=== PATIENT | male | born 1970 | race African-American/Black ===

== ENCOUNTER 2018-12-10 22:33 | Observation (INO) ==
[2018-12-10 23:52] LABS: BASO# 0.05 X1000 (0.0-0.2); BASO% 0.4 % (0.0-0.8); EOS# 0.14 X1000 (0.0-0.7); EOS% 1.1 % (0.0-10.0); HEMATOCRIT 41.2 % (42.0-52.0); HEMOGLOBIN 13.8 g/dL (14.0-18.0); IMM GRAN# 0.05 X1000 (0.0-0.04); IMM GRAN% 0.4 % (0.0-0.5); LYMPH# 1.91 X1000 (1.2-3.4); LYMPH% 15.3 % (20.5-51.1); MCH 25.8 PG (27-31); MCHC 33.5 g/dL (33-37); MCV 77.2 FL (81-99); MONO# 1.73 X1000 (0.11-0.59); MONO% 13.9 % (1.7-9.3); MPV 9.6 FL (7.4-10.4); NEUT# 8.61 X1000 (1.4-6.5); NEUT% 68.9 % (42.2-75.2); PLT 312 X1000 (130-400); RBC 5.34 XMIL (4.7-6.1); RDW 14.8 % (11.5-14.5); WBC 12.49 X1000 (4.8-10.8)
[2018-12-11 00:17] LABS: AGAP 12; ALBUMIN 3.9 g/dL (3.5-5.0); ALKALINE PHOSPHATASE 99 U/L (32-122); BUN 13 mg/dL (8-22); CALCIUM 9.5 mg/dL (8.8-10.2); CHLORIDE 96 mmol/L (98-107); COSMO 278; ESTIMATED GFR > 60; GLUCOSE 140 mg/dL (70-104); GOT 30 U/L (10-34); GPT 29 U/L (10-44); POTASSIUM 3.2 mmol/L (3.5-5.1); SODIUM 138 mmol/L (136-145); TCO2 30 mmol/L (25-35); TOTAL PROTEIN 8.2 g/dL (6.3-8.3)
[2018-12-11] MEDS ORDERED: VANCOMYCIN 1 GM/NS 1 GM/250 ML IVPB IV ONE (01:14)
[2018-12-11] MEDS ORDERED: ZOSYN 3.375 GM in NS 50 ML IV ONE (01:14)
--- NOTE | 2018-12-11 01:27 | PROVIDER DOCUMENTATION ---
This chart was entered by Trina Rios Scribe, acting as scribe for Cristofer Quintero MD. HPI-Rash/Wound/ReCheck - General Chief Complaint: Sores/Lesions Stated Complaint: SORE/LESION(S) Time Seen by Provider: 12/10/18 23:16 Source: patient Allergies/Adverse Reactions: Allergies Allergy/AdvReac Type Severity Reaction Status Date / Time No Known Allergies Allergy Verified 12/10/18 22:52 - History of Present Illness-Dermatology Nature of Presenting Problem: pt is a 48 yr old male presenting with 5 day complaint of skin sore on low abdomen, pt reports 5 days ago he had a raised red tender area, area has gotten larger and more painful since. pt reports wound opened today with purulent drainage noted. pt denies any fever, admits fatigue. pt denies any other compalints. Location: reports: other (low abdomen) Quality: reports: painful Severity: reports: severe Onset/Duration: reports: 5 days ago Timing: reports: changing over time, getting worse Context/Associated Symptoms: reports: abscess Identifiable cause?: No Exposure: reports: unknown cause Locality of Occurance: Home Similar Symptoms Previously?: No Recently seen or treated by another doctor?: No Review of Systems - Adult - REVIEW OF SYSTEMS - ADULT Constitutional: reports: fatique. denies: fever Eyes: reports: no symptoms reported Ears, Nose, Mouth & Throat: reports: no symptoms reported Cardiovascular: reports: no symptoms reported Respiratory: denies: cough, shortness of breath Gastrointestinal: reports: abdominal pain. denies: diarrhea, nausea, vomiting Genitourinary: reports: no symptoms reported Musculoskeletal: reports: no symptoms reported Integumentary: reports: skin sores/ulcer Neurological: reports: no symptoms reported Psychiatric: reports: no symptoms reported Endocrine: reports: no symptoms reported Hematologic/Lymphatic: reports: no symptoms reported Allergic/Immunologic: reports: no symptoms reported All Other Systems: Reviewed and Negative Past History - Adult - PAST MEDICAL HISTORY-ADULT Review of Records: reports: Old Records Reviewed, Nursing Assessment Review, Medications Reviewed, Social history reviewed & non-contributory. Major Childhood Illnesses: reports: denies history Cardiovascular: reports: denies history Respiratory: reports: denies history Gastrointestinal: reports: denies history Obstetrical/Gynecological: reports: denies history Genitourinary: reports: denies history Musculoskeletal: reports: denies history Neurological: reports: denies history Endocrine/Immune: reports: denies history Other Conditions: reports: denies history - IMMUNIZATION STATUS Childhood Immunizations: See Nurse Assessment Flu Vaccine: See Nurse Assessment - FAMILY HISTORY Family History: reviewed, not pertinent - SOCIAL HISTORY Smoking: denies Substance Use: denies Living Situation: family Physical Exam-General - PHYSICAL EXAM-ADULT Initial Vital Signs Reviewed: Yes - CONSTITUTIONAL General Appearance: alert, no apparent distress, obese - EYES Eyes: PERRL/EOMI - HEAD, EARS, NOSE, MOUTH & THROAT HENMT: normocephalic/atraumatic, moist mucous membranes - NECK Neck: non-tender, full range of motion, supple, normal inspection - RESPIRATORY Respiratory: lungs clear, normal breath sounds - CARDIOVASCULAR Cardiovascular: normal peripheral pulses, regular rate, rhythm - GASTROINTESTINAL (ABDOMEN) Abdominal Exam: normal bowel sounds, other (large abscess to low abdomen) - LYMPHATIC Lymphatic: no adenopathy - MUSCULOSKELETAL Back Exam: normal inspection Extremity: normal range of motion, non-tender, normal gait, normal inspection - SKIN Integumentary: normal color, normal turgor, warm/dry, other (large 10x6cm abscess with fluctuant center with surrounding errythema) - NEUROLOGIC Neurologic: grossly normal - PSYCHIATRIC Psych/Mental Status: normal mood/affect Progress - PLAN OF CARE/RESULTS Progress/Plan/Lab Results: Vital Signs - 8 hr 12/10/18 22:38 Temperature 99.9 F H Pulse Rate 91 H Respiratory Rate 20 Blood Pressure 123/78 O2 Sat by Pulse Oximetry 96 Laboratory Results - last 24 hr 12/10/18 12/10/18 23:44 23:44 WBC 12.49 H RBC 5.34 Hgb 13.8 L Hct 41.2 L MCV 77.2 L MCH 25.8 L MCHC 33.5 RDW Std Deviation 14.8 H Plt Count 312 MPV 9.6 Immature Gran % (Auto) 0.4 Neut % (Auto) 68.9 Lymph % (Auto) 15.3 L Gallia % (Auto) 13.9 H Eos % (Auto) 1.1 Baso % (Auto) 0.4 Immature Gran # (Auto) 0.05 H Neut # (Auto) 8.61 H Lymph # (Auto) 1.91 Gallia # (Auto) 1.73 H Eos # (Auto) 0.14 Baso # (Auto) 0.05 Sodium 138 Potassium 3.2 L Chloride 96 L Carbon Dioxide 30 Anion Gap 12 BUN 13 Creatinine 1.0 Estimated GFR/1.73 m2 > 60 BUN/Creatinine Ratio 13 Glucose 140 H Calculated Osmolality 278 Calcium 9.5 Total Bilirubin 0.30 AST 30 ALT 29 Alkaline Phosphatase 99 Total Protein 8.2 Albumin 3.9 Globulin 4.0 Albumin/Globulin Ratio 1.0 Orders Category Date Time Status CT ABD/PELVIS W/IV CONT ONLY [CT] Stat Exams 12/10/18 23:41 Taken BLOOD CULTURE [BLDCUL] Stat Lab 12/10/18 23:48 Ordered CBC WITH ELECTRONIC DIFF [HEME] Stat Lab 12/10/18 23:44 Completed CMP [COMPREHENSIVE METABOLIC PANEL] [CHEM] Stat Lab 12/10/18 23:44 Completed WOUND CULTURE INC GRAM STAIN [RM] Routine Lab 12/10/18 23:55 Ordered Piperacillin/Tazobactam [Zosyn] 3.375 gm Med 12/11/18 01:14 Active 0.9% Sodium Chloride Inj [Ns] 50 ml IV NOW Vancomycin 1 gm/Ns Med 12/11/18 01:14 Active 1 gm in 250 ml IV NOW Result Diagrams: 12/10/18 23:44 12/10/18 23:44 - CT/MRI 1 CT Study: Abdomen CT Results: superficial fluids collection- 1.7cm X 3.2cm, nonspecific cellulitis - CONSULTS/PCP/HOSPITALIST Notification #1 *Consult/PCP/Hospitalist*: Dr. Chow, hospitalist Time Discussed: 01:15 Reason/Comments: admit to [facility] hospitalist, start Vanc & Zosyn Consult Disposition: Admit #2 Consult: Dr. Avalos, hospitalist at [facility] Time Discussed: 01:25 Consult Disposition: Admit Departure - Departure Date of Disposition Decision: 12/11/18 Time of Disposition Decision: 01:30 DIAGNOSIS: Abdominal wall abscess, Abdominal wall cellulitis Disposition: ADMITTED INPATIENT 09 Certified Medical Emergency: Emergent Condition: Stable Referrals and Follow-Ups: Shonna Schultz MD [Primary Care Provider] - - Critical Care Note This patient required my direct & personal management of CC.: No Attestation - Physician/ KEITH Attestation Patient care was provided by Advanced Practice Provider:: No The physician spent face to face time with patient:: Yes Advanced Practice Provider documentation review:: Supervising physician onsite and consulted in the evaluation and care of this patient. The physician did have a face to face encounter with the patient. This chart was documented by the indicated scribe, (Trina Rios Scribe) and accurately reflects the services I performed and decisions made by me, Cristofer Quintero MD, as attested by the provider's signature.
[2018-12-11] MEDS ORDERED: NS 1,000 ML IV ONE (01:30)
[2018-12-11] MEDS ORDERED: VANCOMYCIN IV PER PHARMACY MISC SCH (01:45)
[2018-12-11] MEDS ORDERED: VANCOMYCIN 1,150 MG in NS 250 ML IV ONE (05:00)
--- NOTE | 2018-12-11 06:22 | GENERAL SURGERY CONSULTATION ---
DATE: 12/11/2018 REQUESTING PHYSICIAN: Emergency Department. REASON FOR CONSULTATION: Abdominal wall abscess. HISTORY OF PRESENT ILLNESS: A 48-year-old gentleman presenting with a 5-day history complain of skin sore in the lower abdominal wall. He thought it initially started his folliculitis, but it has continued to worsen. He noticed spontaneous drainage of purulence yesterday and came to the emergency department. He had a CT scan that showed cellulitis and maybe a very small abscess. It has continued to drain. He is doing okay. His pain is adequately controlled at this point. PAST MEDICAL HISTORY: Hyperlipidemia, hypertension. PAST SURGICAL HISTORY: None. SOCIAL HISTORY: Nonsmoker. HOME MEDICATIONS: Reviewed. ALLERGIES: None. FAMILY HISTORY: Reviewed with the patient and noncontributory. REVIEW OF SYSTEMS: A full 10-point review of systems obtained. Negative as specified in HPI. PHYSICAL EXAMINATION: Vital Signs: Patient is currently afebrile. His vital signs are stable. General: No acute distress. Alert, oriented, male, looks stated age. HEENT: Normocephalic, atraumatic. Pupils equal, round, reactive to light. Mucous membranes moist. Oropharynx benign. Neck: Supple. Trachea midline. Cardiovascular: Regular rate and rhythm. Lungs: Grossly clear. Abdomen: Soft. Area of induration and erythema with some minimal fluctuance noted in the left lower quadrant. Drainage of what looks like almost an old hematoma that is infected noted. It is only a scant amount at this point. Extremities: Moves all extremities. Neurologic: Grossly intact. Skin: Wound as noted above. Vascular: All extremities perfused. LABORATORY: White blood count is 12, hematocrit 41, MCV is 77.2. Remainder of labs reviewed. CT scan independently reviewed in Radiology. Preliminary report reviewed. He has an area of cellulitis, but does not look like there is a large discrete abscess. ASSESSMENT AND PLAN: A 48-year-old gentleman with abdominal wall abscess. 1. Abdominal wall abscess. At this time, he seems to be having spontaneous drainage. Will put warm compresses to the area. Reviewing the CT scan and reviewing his wound, I am not sure we will gain much by making an incision over the area as I do not think there is much more abscess to drain, but will give warm compresses and continued antibiotics, and watch it for another 24 hours to see if it becomes more of a drainable situation. If so, we will take him to the operating room to try to drain it, but otherwise continue current treatment. 2. Iron deficiency anemia. At this time, given his age and his MCV being below 80 and having anemia, the patient may benefit from colonoscopy. This could be something I work him up for as an outpatient. cc: Jameson Chow MD
[2018-12-11] MEDS ORDERED: NORCO-7.5 PO PRN (06:56)
[2018-12-11] MEDS ORDERED: TYLENOL PO PRN (06:56)
[2018-12-11] MEDS ORDERED: ZOFRAN IV PRN (06:56)
[2018-12-11] MEDS ORDERED: NS 1,000 ML IV SCH (07:00)
--- NOTE | 2018-12-11 07:14 | Diag Imaging Result Doc PS360 ---
EXAM: CT ABD/PELVIS W/IV CONT ONLY 12/10/2018 HISTORY: abdominal wall abscess TECHNIQUE: This exam was performed using automated exposure control, adjustment of mA or kV according to patient size, and/or use of iterative reconstruction technique. COMMENT: There are no previous studies available for comparison. The visualized portion of the chest is unremarkable. The kidneys are without evidence of hydronephrosis or mass. There is no evidence of cholelithiasis. The adrenal glands and spleen are not enlarged. There are small cysts in the lower right hepatic lobe, however otherwise the liver is unremarkable. The pancreas is within normal limits. There is some stool in the colon particularly the ascending and transverse colon. There is no evidence of bowel obstruction. There is no evidence of significant adenopathy or abdominal aortic aneurysm. Pelvis: There is some skin thickening and subcutaneous edema over the anterior pelvic wall more to the left than the right. The possibility of cellulitis or early abscess cannot be excluded, although there are no gas bubbles demonstrated. No evidence of free fluid is present in the true pelvis and the urinary bladder is not distended. There is no evidence of masses. There is left external iliac adenopathy with a node measuring 2.5 x 1 cm. The regional skeleton is intact. IMPRESSION: Superficial cellulitis plus minus abscess formation in the subcutaneous fat of the anterior pelvic panniculus. Electronically signed by Kojo Guzman 12/11/2018 7:11 AM
--- NOTE | 2018-12-11 07:55 | HISTORY AND PHYSICAL ---
PRIMARY CARE PROVIDER: [*] CHIEF COMPLAINT: Wound in the left lower abdomen. HISTORY OF PRESENT ILLNESS: Mr. Seaman is a 48-year-old, male with a past medical history most notable for hypertension and hyperlipidemia. He states that approximately 5 days ago, he did notice a small red bump just left and inferior to his umbilicus. The patient states that over the next 5 days that the small bump did increase in size, did become a larger area which is now approximately baseball sized, is warm, erythemic and tender to the touch. It does have a central area of drainage noted where it has been draining a bloody, purulent type drainage. The patient states that the pain did increase and began to bother him so he decided to come to the ER for further evaluation. He denies any headache, dizziness, chest pain, shortness of breath or cough. He denies any abdominal pain other than the area just around where his wound is. He denies any nausea, vomiting, or diarrhea. He denies any hematochezia or melena. He denies any dysuria or urinary frequency at this time though did report back in November, [*]did give him an antibiotic of Cipro for what he thinks may have been a urinary tract infection. He denies any pain, numbness, tingling or swelling in extremities. He denies any fever, body aches, or chills. Upon evaluation in the ER at [place], he was noted to have some mild [place] [address]. He did have a mild fever upon initial arrival there of 99.9 degrees, heart rate 91, respirations 20, blood pressure is 123/78 with oxygen saturation of 96%. Given the abscess as well as his symptoms, they did perform a CT abdomen and pelvis with contrast which showed a nonspecific cellulitis involving the anterior abdominal wall. There was a focal superficial fluid-filled collection measuring at least 1.7 x 3.2 cm. This may represent an abscess within the area of edema. Dr. Chow with Surgery was notified. He did recommend the patient be transferred to [facility] for admission and IV antibiotics for possible need for incision and drainage of the abscess. Blood cultures and wound culture have been ordered and were collected at [place] ER. He has been started on antibiotics of vancomycin and Zosyn and we will continue these. Await culture results. He has been transferred to [facility] for inpatient admission. REVIEW OF SYSTEMS: A 14 point review of systems was conducted with the patient and all were negative except for the pertinent positives mentioned in above HPI. PAST MEDICAL HISTORY: 1. Hypertension. 2. Hyperlipidemia. PAST SURGICAL HISTORY: The patient denies any previous surgeries. SOCIAL HISTORY: The patient lives here in [place]. He stated occasionally as a teenager and his early 20s that he did smoke an occasional cigar though denies any history of smoking since then. There is no known alcohol use other than a rare occasional beer. He denies any illicit drug use. He is . FAMILY HISTORY: Positive for his mother having hypertension. There is no history in his father though his some maternal grandmother did have an unknown type of cancer which she from. ALLERGIES: Patient has no known allergies. HOME MEDICATIONS: We are waiting for the patient's home medication list to be verified, though he does take medications for hypertension and hyperlipidemia. Once these have been reconciled, we will address his home medications and continue appropriate medicines. DIAGNOSTIC DATA/LABORATORY RESULTS: White blood cell count 72611, hemoglobin 13.8, hematocrit 41.2, platelet count 312,000. Sodium 138, potassium 3.2, chloride 96, serum bicarb 30, BUN 13, creatinine 1, glucose 140, calcium 9.5. Liver function tests are within normal limits. A CT abdomen and pelvis with IV contrast showed a nonspecific cellulitis involving the anterior abdominal wall. There was a focal superficial fluid-filled collection at least 1.7 x 3.2 cm which may represent an abscess within the area of edema. PHYSICAL EXAMINATION: VITAL SIGNS: Temperature 98.8 degrees, heart rate 82, respirations 20, blood pressure is 125/75, oxygen saturations 100% on room air. GENERAL: Mr. Seaman is a pleasant 48-year-old, male who is resting in the inpatient bed. He was in no acute distress. He was awake, alert and able to answer questions appropriately. HEENT: Head is atraumatic, normocephalic. Pupils are equal, round, reactive to light, were 3 mm bilaterally and brisk. Oral mucosa was moist. Oropharynx is clear. NECK: Supple. Trachea midline. CARDIOVASCULAR: Patient has S1, S2 present. No murmurs, gallops, rubs appreciated. Regular rate and rhythm. PULMONARY: Patient has symmetrical chest expansion bilaterally. Lung sounds are clear to auscultation in bilateral full bains. ABDOMEN: Soft. Nondistended. The patient did report some tenderness just in the localized area around his abscess which is just inferior and left of his umbilicus, just above the line where his pants sit. The area is erythematous, about the size of a softball. It does have warmth and tenderness noted. There is a centralized area that does have a bloody, purulent drainage noted. Bowel sounds were present in all 4 quadrants. EXTREMITIES: No cyanosis, clubbing, or edema noted. Pulse, motor, and sensory were intact in all extremities. Radial pulses and pedal pulses were 2+ bilaterally. INTEGUMENTARY: The patient's skin is pink, warm, and dry except for above described abscess in the abdominal assessment. NEUROLOGICAL: Patient is alert and oriented to person, place, time, and situation. He is able to move all extremities. There are no focal neurological deficits noted. ASSESSMENT AND PLAN: 1. Abdominal wall abscess. For this, we have placed the patient on antibiotic coverage with vancomycin and Zosyn. Wound culture and blood culture have been ordered. We have placed a consult with Dr. Chow with Surgery. We will await his evaluation and further recommendations for management. 2. Mild hypokalemia. The patient did have a potassium level of 3.2 noted on previous labs at [place], though these are from 11 o'clock last night. We have ordered repeat CMP and magnesium for this morning. We will await this result and treat his potassium if necessary. 3. Hypertension. We are awaiting the patient's home medication list to be reconciled. Once done so, we will continue his regularly prescribed antihypertensive medications though his blood pressure at this time is within normal limits at 125/75. 4. Deep vein thrombosis prophylaxis will be provided with sequential compression devices. 5. The patient's glucose is slightly elevated at 140. He does not have a history of diabetes. We will place an order for hemoglobin A1c and continue to monitor. 6. The patient did report that he took an antibiotic for what he believes was possibly a urinary tract infection. We will perform a urinalysis. He has been placed on the surgical floor with telemetry. He will have vital signs q.4 hours. We will do strict intake and output. Further orders and recommendations pending hospital course, diagnostic studies, and physician evaluation. Dictated by LAVELLE Adams for Bakari Avalos MD cc: Bakari Avalos MD
[2018-12-11 08:10] LABS: BASO# 0.05 X1000 (0.0-0.2); BASO% 0.4 % (0.0-0.8); EOS% 1.6 % (0.0-10.0); HEMATOCRIT 44.3 % (42.0-52.0); HEMOGLOBIN 14.7 g/dL (14.0-18.0); IMM GRAN# 0.03 X1000 (0.0-0.04); IMM GRAN% 0.2 % (0.0-0.5); LYMPH# 2.37 X1000 (1.2-3.4); LYMPH% 19.5 % (20.5-51.1); MCH 25.7 PG (27-31); MCHC 33.2 g/dL (33-37); MCV 77.6 FL (81-99); MONO# 1.46 X1000 (0.11-0.59); MPV 9.7 FL (7.4-10.4); NEUT# 8.05 X1000 (1.4-6.5); NEUT% 66.3 % (42.2-75.2); PLT 292 X1000 (130-400); RBC 5.71 XMIL (4.7-6.1); RDW 14.8 % (11.5-14.5); WBC 12.16 X1000 (4.8-10.8)
[2018-12-11 08:23] LABS: HEMOGLOBIN A1C 5.8 % (4.8-6.0); INR 0.98; PROTIME 13.7 Seconds (11.0-16.0)
[2018-12-11 08:24] LABS: PTT 30.6 Seconds (22.3-41.8)
[2018-12-11] MEDS: ZOSYN 3.375 GM in NS 50 ML IV SCH ×4 (08:44→23:30)
[2018-12-11 08:58] LABS: AGAP 12; BUN 11 mg/dL (8-22); CALCIUM 8.9 mg/dL (8.8-10.2); CHLORIDE 100 mmol/L (98-107); COSMO 281; CREATININE 1.1 mg/dL (0.7-1.2); ESTIMATED GFR > 60; GLUCOSE 97 mg/dL (70-104); MAGNESIUM 2.1 mg/dL (1.5-2.7); POTASSIUM 3.3 mmol/L (3.5-5.1); SODIUM 141 mmol/L (136-145); TCO2 29 mmol/L (25-35)
[2018-12-11 11:00] LABS: URINE SOURCE CLEAN CATCH
[2018-12-11 11:03] LABS: BILIRUBIN URINE NEGATIVE (NEGATIVE); BLOOD URINE TRACE (NEGATIVE); COLOR YELLOW; GLUCOSE URINE NEGATIVE (NEGATIVE); KETONE URINE NEGATIVE (NEGATIVE); LEUKOCYTES URINE NEGATIVE (NEGATIVE); NITRITE URINE NEGATIVE (NEGATIVE); PH URINE 6.5; PROTEIN URINE TRACE mg/dL (NEGATIVE); TURBIDITY URINE CLEAR (CLEAR); UROBILINOGEN URINE NORMAL (NORMAL)
[2018-12-11 11:17] LABS: UR EPITHELIAL CELLS <10 /HPF (<10); URINE BACTERIA NEGATIVE /HPF; URINE RBC <10 /HPF (<10); URINE WBC <10 /HPF (<10)
--- NOTE | 2018-12-11 16:32 | PROGRESS NOTE ---
DATE: 12/11/2018 SUBJECTIVE: This is a 48-year-old, patient of Dr. Shonna Schultz, male with a past medical history notable for hypertension, hyperlipidemia, states that approximately 5 days ago he noticed a small red bump on the left, inferior to his umbilicus. The patient states that over the next 5 days this small bump increased in size, became larger in this area, and became a baseball size, warmth, erythemic, tender to touch. He did have central area of drainage noted and had been draining bloody purulent type drainage. The patient did have increase in discomfort and came to the emergency room. Upon evaluation at [place] emergency room, he had some mild leukocytosis with mild white blood cell count elevation; white blood cell count 12,490. He had mild fever upon arrival, 99.9 degrees. He had abdominal wall abscess. The patient was put on antibiotic and Dr. Chow was consulted. He had some mild hypokalemia. History of hypertension. CT of the abdomen: Superficial cellulitis, abscess formation, and subcutaneous fat of the inferior pelvic panniculus. Dr. Chow noted that the patient had spontaneous drainage, put him on warm compresses on the area, and did not feel like it needed incision at this time, but it was draining. Did note an iron deficiency anemia. The patient is feeling better and on vancomycin and Zosyn at this time. He is hoping he gets to go home tomorrow. We will see how we do. cc: Samy Richardson MD
[2018-12-11] MEDS: VANCOMYCIN 1,850 MG in NS 500 ML IV SCH (17:42)
[2018-12-12] MEDS: ZOSYN 3.375 GM in NS 50 ML IV SCH ×2 (05:09→11:35)
[2018-12-12] MEDS: VANCOMYCIN 1,850 MG in NS 500 ML IV SCH (06:13)
--- NOTE | 2018-12-12 09:09 | GENERAL SURGERY PROGRESS NOTE ---
DATE: 12/12/2018 SUBJECTIVE: Patient seems to be doing okay. Still draining from his abdomen. OBJECTIVE: Vital Signs: Patient is currently afebrile. His vital signs stable. General: No acute distress. HEENT: Normocephalic, atraumatic. Pupils equal, round, reactive to light. Mucous membranes moist. Oropharynx benign. Neck: Supple. Trachea midline. Cardiovascular: Regular rate and rhythm. Lungs: Grossly clear. Abdomen: Soft. Area of induration and erythema essentially a little bit smaller on the left lower quadrant. Still draining but looks almost like old hematoma. Extremities: Moves all extremities. Neurologic: Grossly intact. Skin: No signs of jaundice but wound as noted above. Vascular: All extremities perfused. LABORATORY DATA: From yesterday reviewed. ASSESSMENT AND PLAN: A 48-year-old with abdominal wall wound. Abdominal wall wound. At this time, plan on continuing local wound care and antibiotics. I can see him in the office in a week if he gets discharged today. Otherwise, continue supportive care. cc: Jameson Chow MD
[2018-12-12 14:08] VITALS: BP 136/76
--- NOTE | 2018-12-12 18:05 | DISCHARGE SUMMARY ---
ADMISSION DATE: 12/10/2018 DISCHARGE DATE: 12/12/2018 This is a 48-year-old followed by Dr. Shonna Schultz with past medical history noted for hypertension, hyperlipidemia. Approximately 5 days ago before admission he noticed a small red bump just left and inferior to the umbilicus. The patient states that over the next 5 days, had increased in size and pain and discomfort to a baseball size. He presented to the emergency room. He had already started a central area of drainage and spontaneous drainage with bloody purulent caseous material. He had been given some Cipro for a suspected urinary tract infection. Went to the ER at [place]. Had mild leukocytosis, blood cell count 12,490, and a mild fever of 99.9. Heart rate was 90, respirations 20, blood pressure 123/78. CT of the abdomen and pelvis with contrast showed nonspecific cellulitis involving inferior abdominal wall. There was focal superficial fluid-filled collection measuring about 1.7 to 3.2 cm, which represented what looked like a carbuncle or a sebaceous cyst with an area of edema. Past medical history includes hypertension and hyperlipidemia. He was admitted and put on some broad-spectrum antibiotics for cellulitis. Dr. Chow evaluated him, and he felt he already had spontaneous drainage and that I D probably would not benefit him at this point so he will continue warm compresses. Did notice some mild iron deficiency anemia. His hematocrit 44, hemoglobin was 14, MCV was 77. He wanted to go home on 12/12/2018. Blood cultures did not grow anything. Wound culture was positive for a gram-positive cocci. I am going to put him on Bactrim Double Strength 1 twice a day for another 7 days. He knows how to change those dressings. He can sit in a bathtub with some antibacterial soap and let it soak as well, but I want him to keep that area cool and dry. He should be ready go back to work on next Sunday. Today is the ; Sunday will be 12/17/2018 so I gave him a work excuse to start back to work on 12/17/2018. HOME MEDICINES: He is on lisinopril/hydrochlorothiazide 20/12.5 a day. He will continue that. He can continue the Mobic and the Pravachol 1 a day. FOLLOW-UP: Follow up with Dr. Shonna Schultz. cc: Samy Richardson MD
== END 2018-12-12 18:10 | disposition home or self-care (01) ==
LOC: 3N 22:33 → P.ED 22:33 → SUATTDRO 22:34 → 3N 12-11 03:06
PROVIDERS: ATTEND Emergency Medicine
CPT/HCPCS: 74177; 80048; 80053; 81001; 83036; 83735; 85025; 85610; 85730; 86850; 86900; 86901; 87040; 87070; 87077; 87186; 96365; 99285; J2543; J3370; J7030; J7040; Q9967